=== PATIENT | male | born 1990 | race Two or more races ===

== ENCOUNTER 2018-03-28 10:16 | Inpatient (IN) | payer MEDICAID, OTHER ==
[~2018-03-28] VITALS: Ht 172.7 cm; Wt 76.7 kg
[2018-03-28] MEDS ORDERED: LURA20TA PO (10:28)
[2018-03-28] MEDS ORDERED: TRAZ-219 PO (10:28)
[2018-03-28] MEDS ORDERED: BUPR75 PO (10:28)
[2018-03-28 10:57] LABS: BASOPHILS % (AUTO) 0.3 % (0.0-2.0); HEMOGLOBIN 16.4 g/dL (13.5-17.5); LYMPHOCYTES # (AUTO) 1.6 K/uL (1.0-4.8); MEAN CORPUSCULAR HEMOGLOBIN 31.1 pg (26.0-34.0); MEAN CORPUSCULAR HGB CONC 34.9 G/dL (31.0-37.0); MEAN CORPUSCULAR VOLUME 89 fL (80-100); MONOCYTES # (AUTO) 0.5 K/uL (0.1-1.0); NEUTROPHILS # (AUTO) 3.9 K/uL (1.8-7.7); NEUTROPHILS % (AUTO) 64.7 % (40.0-70.0); PLATELET COUNT (AUTO) 206 K/uL (150-450); RED BLOOD CELL COUNT(AUTO) 5.27 MIL/uL (4.50-5.90); RED CELL DISTRIBUTION WIDTH 12.7 % (11.5-14.5)
[2018-03-28 11:05] LABS: ANION GAP 5 mmol/L (8-16); CALCIUM, TOTAL 9.5 mg/dL (8.8-10.5); CARBON DIOXIDE 33 mmol/L (22-29); CHLORIDE 102 mmol/L (98-107); CREATININE 0.97 mg/dL (0.60-1.30); GLOMERULAR FILTR. RATE CALC > 60 mL/min (>60); GLUCOSE,RANDOM 86 mg/dL (70-110); POTASSIUM 3.8 mmol/L (3.5-5.1); SODIUM SERUM 140 mmol/L (136-145); UREA NITROGEN, BLOOD 19 mg/dL (7-18)
[2018-03-28 11:11] LABS: ALANINE AMINOTRANSFERASE 55 U/L (12-78); ALBUMIN 4.2 g/dL (3.4-5.0); ALKALINE PHOSPHATASE 105 U/L (46-116); ASPARTATE AMINOTRANSFERASE 17 U/L (15-37); BILIRUBIN,TOTAL 0.8 mg/dL (0.1-1.0); TOTAL PROTEIN, SERUM 8.3 g/dL (6.4-8.2)
[2018-03-28] MEDS ORDERED: OLANZapine 5 MG RAPDIS TABLET PO PRN (11:15)
[2018-03-28] MEDS ORDERED: IBUPROFEN 400 MG TABLET PO PRN (11:15)
[2018-03-28] MEDS ORDERED: LORazepam 2 MG TABLET PO PRN (11:15)
[2018-03-28] MEDS ORDERED: ACETAMINOPHEN 325 MG TABLET PO PRN (11:15)
[2018-03-28 11:28] LABS: AMPHET/METH SCREEN,URINE NEGATIVE (NEGATIVE); BARBITURATE SCREEN, URINE NEGATIVE (NEGATIVE); BENZODIAZEPINES SCREEN,URINE NEGATIVE (NEGATIVE); CANNABINOID SCREEN,URINE NEGATIVE (NEGATIVE); COCAINE SCREEN,URINE NEGATIVE (NEGATIVE); METHADONE SCREEN, URINE NEGATIVE (NEGATIVE); OPIATE SCREEN,URINE NEGATIVE (NEGATIVE); PHENCYCLIDINE SCREEN,URINE NEGATIVE (NEGATIVE)
[2018-03-28] MEDS ORDERED: PNEUMOCOCCAL VACCINE POLYVALENT 0.5 ML VIAL [PPSV23] IM ONE (14:00)
[2018-03-28 14:01] VITALS: BP 119/90
[2018-03-28] MEDS ORDERED: HYDROCORTISONE 1% 30 GM OINTMENT TP PRN (16:00)
[2018-03-28 16:31] VITALS: BP 119/80
[2018-03-28] MEDS: ZOLPIDEM TARTRATE 10 MG TABLET PO PRN (20:34)
[2018-03-29 06:13] VITALS: BP 126/82
[2018-03-29 07:53] LABS: BASOPHILS % (AUTO) 0.2 % (0.0-2.0); HEMATOCRIT 45.8 % (41-53); HEMOGLOBIN 15.9 g/dL (13.5-17.5); LYMPHOCYTES # (AUTO) 1.9 K/uL (1.0-4.8); LYMPHOCYTES % (AUTO) 29.4 % (22.0-44.0); MEAN CORPUSCULAR HEMOGLOBIN 31.1 pg (26.0-34.0); MEAN CORPUSCULAR HGB CONC 34.6 G/dL (31.0-37.0); MEAN CORPUSCULAR VOLUME 90 fL (80-100); MONOCYTES # (AUTO) 0.6 K/uL (0.1-1.0); MONOCYTES % (AUTO) 8.5 % (2.0-9.0); NEUTROPHILS % (AUTO) 60.9 % (40.0-70.0); PLATELET COUNT (AUTO) 188 K/uL (150-450); RED BLOOD CELL COUNT(AUTO) 5.11 MIL/uL (4.50-5.90)
[2018-03-29 08:01] LABS: HEMOGLOBIN A1C 4.9 % (4.5-6.2)
[2018-03-29 08:22] LABS: ALANINE AMINOTRANSFERASE 53 U/L (12-78); ALKALINE PHOSPHATASE 97 U/L (46-116); ANION GAP 6 mmol/L (8-16); ASPARTATE AMINOTRANSFERASE 18 U/L (15-37); BILIRUBIN,TOTAL 0.6 mg/dL (0.1-1.0); CALCIUM, TOTAL 9.1 mg/dL (8.8-10.5); CARBON DIOXIDE 30 mmol/L (22-29); CHLORIDE 105 mmol/L (98-107); CHOL/HDL RATIO 3.4 (4.2-7.3); CHOLESTEROL 95 mg/dL (131-200); CREATININE 0.95 mg/dL (0.60-1.30); GLOMERULAR FILTR. RATE CALC > 60 mL/min (>60); GLUCOSE,RANDOM 86 mg/dL (70-110); HDL CHOLESTEROL 28 mg/dL (40-60); LDL CHOL (CALC.) 58 mg/dL (0-130); POTASSIUM 3.9 mmol/L (3.5-5.1); SODIUM SERUM 141 mmol/L (136-145); TOTAL PROTEIN, SERUM 7.8 g/dL (6.4-8.2); TRIGLYCERIDES 44 mg/dL (15-150); UREA NITROGEN, BLOOD 17 mg/dL (7-18)
[2018-03-29 09:23] VITALS: BP 113/67
[2018-03-29] MEDS ORDERED: BuPROPion HCL 150 MG SR TABLET PO ONE (13:00)
[2018-03-29 16:18] VITALS: BP 112/79
[2018-03-29] MEDS: TraZODone HCL 100 MG TABLET PO SCH (20:12)
[2018-03-30 01:13] VITALS: BP 114/67
[2018-03-30] MEDS: ZOLPIDEM TARTRATE 10 MG TABLET PO PRN (02:36)
[2018-03-30 08:54] VITALS: BP 123/75
[2018-03-30] MEDS: BuPROPion HCL 150 MG SR TABLET PO SCH (10:11)
[2018-03-30 16:14] VITALS: BP 120/75
[2018-03-30] MEDS: TraZODone HCL 100 MG TABLET PO SCH (20:03)
[2018-03-31 00:20] VITALS: BP 115/70
[2018-03-31] MEDS: ARIPiprazole 5 MG TABLET PO SCH (08:52)
[2018-03-31] MEDS: BuPROPion HCL 150 MG SR TABLET PO SCH (08:52)
[2018-03-31 08:56] VITALS: BP 116/81
[2018-03-31 16:52] VITALS: BP 122/85
[2018-03-31] MEDS: TraZODone HCL 100 MG TABLET PO SCH (20:18)
[2018-04-01 02:40] VITALS: BP 120/86
[2018-04-01] MEDS: ZOLPIDEM TARTRATE 10 MG TABLET PO PRN (02:43)
[2018-04-01 08:43] VITALS: BP 122/77
[2018-04-01] MEDS: BuPROPion HCL 150 MG SR TABLET PO SCH (09:23)
[2018-04-01] MEDS: ARIPiprazole 5 MG TABLET PO SCH (09:23)
[2018-04-01] MEDS ORDERED: ARIP5TAB8 PO (11:23)
== END 2018-04-01 14:20 | disposition home or self-care (01) | DRG 750 ==
LOC: EMS 10:18 → B2S 11:50
PROVIDERS: ADMIT Psychiatry & Neurology Psychiatry; ATTEND Psychiatry & Neurology Psychiatry
DX: F25.1 Schizoaffective disorder, depressive type (principal); R45.851 Suicidal ideations; F41.9 Anxiety disorder, unspecified; Z79.899 Other long term (current) drug therapy; Z28.21 Immunization not carried out because of patient refusal
CPT/HCPCS: 83036; 84443; 99285; G0480